=== PATIENT | male | born 1990 | race Caucasian/White ===

== ENCOUNTER 2018-10-23 14:41 | Observation (INO) | payer SELFPAY ==
[~2018-10-23 14:41] MED LIST: ROCURONIUM BROMIDE INJ 50 MG/5 ML VIAL IV ONE; SUCCINYLCHOLINE CHLORIDE INJ 200 MG/10 ML VIAL ONE
[2018-10-23] MEDS ORDERED: ONDANSETRON HCL INJ/PF 4 MG/2 ML SDV IV ONE (15:27)
[2018-10-23] MEDS ORDERED: NORMAL SALINE 1000 ML 1,000 ML IV ONE (15:27)
--- NOTE | 2018-10-23 15:29 | ER Document Report ---
ED Medical Screen (RME) - General Chief Complaint: Abdominal Pain Stated Complaint: NAUSEA Time Seen by Provider: 10/23/18 15:26 Mode of Arrival: Ambulatory Information source: Patient Notes: Patient presents complaining of abdominal pain that started yesterday with nausea vomiting and diarrhea. Patient states that he is vomited about 15 times today. Patient does report decreased appetite. Patient reports subjective fever. Patient states pain starts the epigastric area that has moved to the right side of his abdomen. Patient states the pain does occasionally radiate to the testicles. Patient denies any flank pain. I have greeted and performed a rapid initial assessment of this patient. A comprehensive ED assessment and evaluation of the patient, analysis of test results and completion of the medical decision making process will be conducted by additional ED providers. TRAVEL OUTSIDE OF THE [place] IN LAST 30 DAYS: No - Related Data Allergies/Adverse Reactions: No Known Allergies Allergy (Unverified 10/23/18 14:42) Past Medical History - Social History Chew tobacco use (# tins/day): No Frequency of alcohol use: None Drug Abuse: None Renal/ Medical History: Denies: Hx Peritoneal Dialysis Physical Exam - Vital signs Vitals: Temp Pulse Resp BP Pulse Ox 98.7 F 118 H 22 H 155/91 H 97 10/23/18 14:49 10/23/18 14:49 10/23/18 14:49 10/23/18 14:49 10/23/18 14:49 - Abdominal Tenderness: Tender - Right lateral abdominal tenderness Course - Vital Signs Vital signs: Temp Pulse Resp BP Pulse Ox 98.7 F 118 H 22 H 155/91 H 97 10/23/18 14:49 10/23/18 14:49 10/23/18 14:49 10/23/18 14:49 10/23/18 14:49
[2018-10-23 16:40] LABS: ABSOLUTE BASOPHILS # (AUTO) 0.1 10^3/uL (0.0-0.2); ABSOLUTE EOSINOPHILS # (AUTO) 0.1 10^3/uL (0.0-0.6); ABSOLUTE LYMPHOCYTES (AUTO) 1.6 10^3/uL (0.5-4.7); ABSOLUTE MONOCYTES (AUTO) 1.2 10^3/uL (0.1-1.4); ABSOLUTE NEUT (AUTO) 16.4 10^3/uL (1.7-8.2); BASOPHILS % (AUTO) 0.6 % (0-2); EOSINOPHILS % (AUTO) 0.5 % (0-6); HEMATOCRIT 52.2 % (37.9-51.0); HEMOGLOBIN 17.1 g/dL (13.5-17.0); LYMPHOCYTES % (AUTO) 8.1 % (13-45); MEAN CORPUSCULAR HEMOGLOBIN 25.4 pg (27.0-33.4); MEAN CORPUSCULAR HGB CONC 32.7 g/dL (32.0-36.0); MEAN CORPUSCULAR VOLUME 78 fl (80-97); MONOCYTES % (AUTO) 6.3 % (3-13); PLATELET COUNT 569 10^3/uL (150-450); RED BLOOD COUNT 6.72 10^6/uL (4.35-5.55); RED CELL DISTRIBUTION WIDTH 19.8 % (11.5-14.0); SEGMENTED NEUTROPHILS % (AUTO) 84.5 % (42-78); TOTAL CELLS COUNTED % (AUTO) 100 %; WHITE BLOOD COUNT 19.5 10^3/uL (4.0-10.5)
[2018-10-23 16:50] LABS: APPEARANCE,URINE CLOUDY; BILIRUBIN,URINE SMALL (NEGATIVE); GLUCOSE, URINE NEGATIVE (NEGATIVE); KETONES,URINE 20 mg/dL (NEGATIVE); LEUKOCYTE ESTERASE,URINE NEGATIVE (NEGATIVE); NITRITE,URINE NEGATIVE (NEGATIVE); PROTEIN,URINE 100 mg/dL (NEGATIVE); URINE SPECIFIC GRAVITY 1.031
[2018-10-23 16:51] LABS: COLOR,URINE YELLOW
[2018-10-23 16:58] LABS: ALANINE AMINOTRANSFERASE 67 U/L (21-72); ALBUMIN 4.4 g/dL (3.5-5.0); ALKALINE PHOSPHATASE 163 U/L (38-126); ANION GAP 15 (5-19); ASPARTATE AMINO TRANSFERASE 43 U/L (17-59); BILIRUBIN,DIRECT 0.5 mg/dL (0.0-0.4); BILIRUBIN,TOTAL 0.9 mg/dL (0.2-1.3); BLOOD UREA NITROGEN 8 mg/dL (7-20); CARBON DIOXIDE 27 mmol/L (22-30); CHLORIDE 100 mmol/L (98-107); GLUCOSE 93 mg/dL (75-110); LIPASE 372.4 U/L (23-300); SODIUM 141.6 mmol/L (137-145); TOTAL PROTEIN 7.5 g/dL (6.3-8.2)
[2018-10-23] MEDS ORDERED: RINGERS SOLUTION,LACTATED 1,000 ML IV ONE ×2 (18:31→20:08)
--- NOTE | 2018-10-23 19:01 | ER Document Report ---
ED General - General Chief Complaint: Abdominal Pain Stated Complaint: NAUSEA Time Seen by Provider: 10/23/18 15:26 Mode of Arrival: Ambulatory Notes: Patient is a 28-year-old male without chronic medical problems, does use testosterone, no history of abdominal surgeries who presents with 36 hours of nausea, vomiting, diarrhea and right-sided abdominal pain. States the pain started first followed by vomiting and diarrhea. States he has had difficulty tolerating even oral fluids as this generally triggered him to vomit or have an episode of diarrhea. No hematemesis, melena or hematochezia. He denies any history of similar symptoms in the past. No known sick contacts. Has had subjective fever at home but has not recorded a temperature. He has not seen his general physician regarding today's concerns. The pain to his abdomen is described as a throbbing, aching, stabbing discomfort mostly localized to his right lower quadrant. Nothing seems to improve or worsen this discomfort. TRAVEL OUTSIDE OF THE [place] IN LAST 30 DAYS: No - Related Data Allergies/Adverse Reactions: No Known Allergies Allergy (Unverified 10/23/18 14:42) Past Medical History - General Information source: Patient - Social History Smoking Status: Never Smoker Chew tobacco use (# tins/day): No Frequency of alcohol use: None Drug Abuse: None Lives with: Spouse/Significant other Family History: Reviewed & Not Pertinent Patient has suicidal ideation: No Patient has homicidal ideation: No Renal/ Medical History: Denies: Hx Peritoneal Dialysis Review of Systems - Review of Systems Notes: Constitutional: Positive for subjective fever HENT: Negative for sore throat. Eyes: Negative for visual changes. Cardiovascular: Negative for chest pain. Respiratory: Negative for shortness of breath. Gastrointestinal: Positive for abdominal pain, vomiting and diarrhea Genitourinary: Negative for dysuria. Musculoskeletal: Negative for back pain. Skin: Negative for rash. Neurological: Negative for headaches, weakness or numbness. 10 point ROS negative except as marked above and in HPI. Physical Exam - Vital signs Vitals: Temp Pulse Resp BP Pulse Ox 98.7 F 118 H 22 H 155/91 H 97 10/23/18 14:49 10/23/18 14:49 10/23/18 14:49 10/23/18 14:49 10/23/18 14:49 Interpretation: Hypertensive, Tachycardic - Patient states his resting heart rate is generally 100 Notes: PHYSICAL EXAMINATION: GENERAL: Well-appearing, well-nourished and in no acute distress. HEAD: Atraumatic, normocephalic. EYES: Pupils equal round and reactive to light, extraocular movements intact, sclera anicteric, conjunctiva are normal. ENT: nares patent, oropharynx clear without exudates. Moderately dry mucous membranes. NECK: Normal range of motion, supple without lymphadenopathy LUNGS: Breath sounds clear to auscultation bilaterally and equal. No wheezes rales or rhonchi. HEART: regular tachycardia without murmurs ABDOMEN: Soft, mild diffuse tenderness most localized to the right lower quadrant and right upper quadrant without rebound or guarding, normoactive bowel sounds. No masses appreciated. EXTREMITIES: Normal range of motion, no pitting or edema. No cyanosis. NEUROLOGICAL: No focal neurological deficits. Moves all extremities spontaneously and on command. PSYCH: Normal mood, normal affect. SKIN: Warm, Dry, normal turgor, diffuse acne lesions Course - Re-evaluation Re-evalutation: 10/23/18 19:00 Patient presents with right-sided abdominal pain with associated nausea vomiting diarrhea. Presentation appears to be likely an infectious gastroenteritis but patient's localization of pain on abdominal exam is very much so localized towards the right lower quadrant and certainly worrisome for a very atypical presentation of appendicitis. Most concerned that the patient states that his pain started prior to his vomiting or diarrhea. CT imaging will be obtained to clarify that this is not an atypical presentation of appendicitis. His testicular exam is unremarkable as he did complain of some testicular pain in triage. Positive cremasteric reflex, no testicular or epididymal tenderness. Normal testicular lie. Patient's labs are notable for mild kidney injury, po lycythemia, likely related to his testosterone abuse which we have discussed at length. Patient is also noted to be tachycardic although is actually hypertensive again this could be contributing to his testosterone abuse as well as dehydration. The patient does admit that his blood pressure is generally high and that he often has a heart rate of 100-110. I have advised at length that he discontinue testosterone use immediately and we have reviewed the severe dangers of abuse of this hormonal therapy for bodybuilding purposes. 10/23/18 20:18 CT scan does demonstrate acute appendicitis. I have discussed with the surgeon on-call Dr. Lester who is accepted the patient. Patient has been notified of findings. He remains n.p.o. Has been started on Zosyn - Vital Signs Vital signs: Temp Pulse Resp BP Pulse Ox 98.7 F 118 H 22 H 155/91 H 97 10/23/18 14:49 10/23/18 14:49 10/23/18 14:49 10/23/18 14:49 10/23/18 14:49 - Laboratory Result Diagrams: 10/23/18 16:24 10/23/18 16:24 Laboratory results interpreted by me: 10/23/18 10/23/18 10/23/18 15:40 16:24 16:24 WBC 19.5 H RBC 6.72 H Hgb 17.1 H Hct 52.2 H MCV 78 L MCH 25.4 L RDW 19.8 H Plt Count 569 H Seg Neutrophils % 84.5 H Lymphocytes % 8.1 L Absolute Neutrophils 16.4 H Creatinine 1.30 H Direct Bilirubin 0.5 H Alkaline Phosphatase 163 H Lipase 372.4 H Urine Protein 100 H Urine Ketones 20 H Urine Bilirubin SMALL H Urine Urobilinogen 2.0 H - Diagnostic Test Radiology reviewed: Reports reviewed Discharge - Discharge Clinical Impression: Nausea vomiting and diarrhea, Polycythemia Acute appendicitis Qualifiers: Acute appendicitis type: with localized peritonitis Appendicitis gangrene presence: without gangrene Appendicitis perforation presence: without perforation Appendicitis abscess presence: without abscess Qualified Code(s): K35.30 - Acute appendicitis with localized peritonitis, without perforation or gangrene Condition: Fair Disposition: ADMITTED OBSERVATION Admitting Provider: Surgicalist Unit Admitted: Surgical Floor
--- NOTE | 2018-10-23 19:47 | RADIOLOGY REPORT (SQ) ---
EXAM DESCRIPTION: CT ABD/PELVIS WITH IV ONLY COMPLETED DATE/TIME: 10/23/2018 7:16 pm REASON FOR STUDY: rlq ab pain, vomiting COMPARISON: None. TECHNIQUE: CT scan of the abdomen and pelvis performed using helical scanning technique with dynamic intravenous contrast injection. No oral contrast. Images reviewed with lung, soft tissue, and bone w indows. Reconstructed coronal and sagittal MPR images reviewed. Delayed images for evaluation of the urinary system also acquired. All images stored on PACS. All CT scanners at this facility use dose modulation, iterative reconstruction, and/or weight based d osing when appropriate to reduce radiation dose to as low as reasonably achievable (ALARA). [facility]: Dose Right [facility]: CareDose [facility]: Dose Right [facility]: Teradose 4D [facility]: CoSchedule CONTRAST TYPE AND DOSE: contrast/concentration: Isovue 350.00 mg/ml; Total Contrast Delivered: 90.0 ml; Total Saline Delivered: 45.0 ml RENAL FUNCTION: GFR > 60. RADIATION DOSE: CT Rad equipment meets quality standard of care and radiation dose reduction techniq ues were employed. CTDIvol: 6.5 - 9.2 mGy. DLP: 811 mGy-cm.. LIMITATIONS: None. FINDINGS: LOWER CHEST: No significant findings. LIVER: Normal size. No enhancing masses. No dilated ducts. SPLEEN: Normal size. No focal lesions. PANCREAS: No masses identified. No significant calcifications. No adjacent inflammation or peripancre atic fluid collections. Pancreatic duct not dilated. GALLBLADDER: No calcified stones. No inflammatory changes to suggest cholecystitis. ADRENAL GLANDS: No significant masses. RIGHT KIDNEY AND URETER: No cysts identified. No solid masses identified. No calcified stones. No hyd ronephrosis or hydroureter. LEFT KIDNEY AND URETER: No cysts identified. No solid masses identified. No calcified stones. No hydr onephrosis or hydroureter. AORTA AND VESSELS: No aneurysm. No dissection. Renal arteries, SMA, celiac without significant stenos is. RETROPERITONEUM: No bulky retroperitoneal adenopathy. BOWEL AND PERITONEAL CAVITY: No obstruction or inflammatory changes. No free fluid. APPENDIX: Inflamed dilated appendix with adjacent inflammatory changes. PELVIS: No mass. No free fluid. Unremarkable bladder. ABDOMINAL WALL: No masses. No hernias. BONES: No acute findings. OTHER: No other significant finding. IMPRESSION: Acute appendicitis. TECHNICAL DOCUMENTATION: JOB ID: [id number] [id number] Quality ID # [id number]: Final reports with documentation of one or more dose reduction techniques (e.g., Au tomated exposure control, adjustment of the mA and/or kV according to patient size, use of iterative reconstruction technique) 2010 [employer]- All Rights Reserved Reading location - IP/workstation name: [email or web address]
[2018-10-23] MEDS ORDERED: MORPHINE SULFATE 10 MG/ML INJ IV PRN ×3 (19:50→23:42)
[2018-10-23] MEDS ORDERED: PIPERACILLIN/TAZOBACTAM 3.375 GM VIAL IV ONE (19:50)
[2018-10-23] MEDS ORDERED: KETOROLAC TROMETHAMINE INJ/PF 30 MG/1 ML SDV IV ONE (19:50)
[2018-10-23] MEDS ORDERED: RINGERS SOLUTION,LACTATED 1,000 ML IV PRN (19:59)
--- NOTE | 2018-10-23 20:24 | PDOC H&P ---
History of Present Illness Admission Date/PCP: 10/23/18 Patient complains of: abdominal pains History of Present Illness: BROOK CHAIREZ is a 28 year old male who started to have upper abdominal pains 36 hrs ago. This was associated with nausea/vomiting/diarrhea and fever/chills. Pains localized to RLQ last night. Went to ED and CT scan of abd/pelvis showed acute appendicitis. He participates in power lifting and takes a testosterone med for this. He has been tapering it for past 2 weeks. Social History Lives with: Spouse/Significant other Smoking Status: Never Smoker Family History Family History: Reviewed & Not Pertinent Parental Family History Reviewed: Yes Children Family History Reviewed: No Sibling(s) Family History Reviewed.: No Medication/Allergy Home Medications: Trazodone HCl [Desyrel 50 mg Tablet] 150 mg PO QHS 10/23/18 Allergies/Adverse Reactions: No Known Allergies Allergy (Unverified 10/23/18 14:42) Review of Systems Constitutional: PRESENT: as per HPI Physical Exam Vital Signs: Temp Pulse Resp BP Pulse Ox 98.7 F 118 H 22 H 155/91 H 97 10/23/18 14:49 10/23/18 14:49 10/23/18 14:49 10/23/18 14:49 10/23/18 14:49 Intake & Output 10/22/18 10/23/18 10/24/18 06:59 06:59 06:59 Intake Total 1000 Balance 1000 Weight 79.1 kg General appearance: PRESENT: severe distress Head exam: PRESENT: atraumatic Eye exam: PRESENT: conjunctiva pink Mouth exam: PRESENT: dry mucosa Neck exam: PRESENT: full ROM Respiratory exam: PRESENT: clear to auscultation sybil Cardiovascular exam: PRESENT: RRR Pulses: PRESENT: normal radial pulses Vascular exam: PRESENT: normal capillary refill GI/Abdominal exam: PRESENT: soft, tenderness - RLQ with rebound Rectal exam: PRESENT: deferred Extremities exam: PRESENT: full ROM Musculoskeletal exam: PRESENT: ambulatory Neurological exam: PRESENT: alert, oriented to person, oriented to place, oriented to time, oriented to situation Psychiatric exam: PRESENT: appropriate affect Skin exam: PRESENT: normal color, warm Results Laboratory Results: 10/23/18 16:24 10/23/18 16:24 10/23/18 10/23/18 10/23/18 15:40 16:24 16:24 WBC 19.5 H RBC 6.72 H Hgb 17.1 H Hct 52.2 H MCV 78 L MCH 25.4 L MCHC 32.7 RDW 19.8 H Plt Count 569 H Seg Neutrophils % 84.5 H Lymphocytes % 8.1 L Monocytes % 6.3 Eosinophils % 0.5 Basophils % 0.6 Absolute Neutrophils 16.4 H Absolute Lymphocytes 1.6 Absolute Monocytes 1.2 Absolute Eosinophils 0.1 Absolute Basophils 0.1 Sodium 141.6 Potassium 5.0 Chloride 100 Carbon Dioxide 27 Anion Gap 15 BUN 8 Creatinine 1.30 H Est GFR ( Amer) > 60 Est GFR (Non-Af Amer) > 60 Glucose 93 Calcium 10.0 Total Bilirubin 0.9 AST 43 ALT 67 Alkaline Phosphatase 163 H Total Protein 7.5 Albumin 4.4 Lipase 372.4 H Urine Color YELLOW Urine Appearance CLOUDY Urine pH 7.0 Ur Specific [place] 1.031 Urine Protein 100 H Urine Glucose (UA) NEGATIVE Urine Ketones 20 H Urine Blood NEGATIVE Urine Nitrite NEGATIVE Ur Leukocyte Esterase NEGATIVE Urine WBC (Auto) 2 Urine RBC (Auto) 2 Impressions: Abdomen/Pelvis CT 10/23/18 18:55 IMPRESSION: Acute appendicitis. Assessment & Plan - Diagnosis (1) acute appendicitis Is this a current diagnosis for this admission?: Yes - Time Time Spent: 30 to 50 Minutes - Inpatient Certification Medical Necessity: Need For IV Fluids, Need for IV Antibiotics, Need for Surgery - Plan Summary Plan Summary: Start IV antibiotics Hydrate For lap appendectomy
[2018-10-23] MEDS ORDERED: BUPIVACAINE HCL 0.25 % INJ/PF (2.5 MG/1 ML) 30 ML VIAL ONE (21:04)
[2018-10-23] MEDS ORDERED: PROPOFOL INJ 200 MG/20 ML VIAL IV ONE (21:21)
[2018-10-23] MEDS ORDERED: ONDANSETRON HCL INJ/PF 4 MG/2 ML SDV ONE (21:21)
[2018-10-23] MEDS ORDERED: MIDAZOLAM 2 MG/2 ML INJ ONE (21:21)
[2018-10-23] MEDS ORDERED: FENTANYL CITRATE INJ/PF 100 MCG/2 ML AMPUL ONE ×2 (21:21→22:53)
[2018-10-23] MEDS ORDERED: DEXAMETHASONE SOD PHOSPHATE INJ 4 MG/1 ML VIAL ONE (21:21)
[2018-10-23] MEDS ORDERED: DIPHENHYDRAMINE HCL 50 MG/ML VIAL IV PRN (22:09)
[2018-10-23] MEDS ORDERED: PROMETHAZINE HCL INJ 25 MG/1 ML VIAL IV PRN ×2 (22:09)
[2018-10-23] MEDS ORDERED: ONDANSETRON HCL INJ/PF 4 MG/2 ML SDV IV PRN ×2 (22:09→23:43)
[2018-10-23] MEDS ORDERED: MEPERIDINE HCL/PF INJ 25 MG/1 ML DISP.SYRIN IV PRN (22:09)
[2018-10-23] MEDS ORDERED: OXYCODONE-ACETAMINOPHEN 5-325 MG TABLET PO PRN ×3 (22:09→23:42)
[2018-10-23] MEDS ORDERED: FENTANYL CITRATE INJ/PF 100 MCG/2 ML AMPUL IV PRN ×3 (22:09)
[2018-10-23] MEDS ORDERED: DEXTROSE 5%-LACTATED RINGERS 1,000 ML IV PRN (23:43)
[2018-10-24] MEDS ORDERED: PIPERACILLIN/TAZOBACTAM 3.375 GM VIAL IV ONE (04:31)
[2018-10-24] MEDS: PIPERACILLIN SODIUM/TAZOBACTAM 3.375 GM in NORMAL SALINE 100 ML IV SCH ×2 (04:52→08:52)
[2018-10-24] MEDS: KETOROLAC TROMETHAMINE INJ/PF 30 MG/1 ML SDV IV SCH ×2 (04:52→08:52)
[2018-10-24 05:45] LABS: HEMATOCRIT 44.8 % (37.9-51.0); MEAN CORPUSCULAR HEMOGLOBIN 25.4 pg (27.0-33.4); MEAN CORPUSCULAR HGB CONC 32.3 g/dL (32.0-36.0); MEAN CORPUSCULAR VOLUME 79 fl (80-97); PLATELET COUNT 389 10^3/uL (150-450); RED BLOOD COUNT 5.69 10^6/uL (4.35-5.55); RED CELL DISTRIBUTION WIDTH 19.4 % (11.5-14.0); WHITE BLOOD COUNT 17.9 10^3/uL (4.0-10.5)
[2018-10-24 06:05] LABS: HEMOGLOBIN 14.5 g/dL (13.5-17.0)
[2018-10-24 06:09] LABS: ABSOLUTE LYMPHOCYTES# (MANUAL) 1.3 10^3/uL (0.5-4.7); ABSOLUTE MONOCYTES # (MANUAL) 0.5 10^3/uL (0.1-1.4); BAND NEUTROPHILS % (MANUAL) 1 % (3-5); BASOPHILS % (MANUAL) 0 % (0-2); EOSINOPHILS % (MANUAL) 0 % (0-6); LYMPHOCYTES % (MANUAL) 6 % (13-45); MONOCYTES % (MANUAL) 3 % (3-13); SEGMENTED NEUTROPHILS % (MAN) 89 % (42-78); TOTAL CELLS COUNTED 100
[2018-10-24 06:10] LABS: ANISOCYTOSIS 2+; PLATELET COMMENT ADEQUATE; TOXIC GRANULATION SLIGHT
--- NOTE | 2018-10-24 07:59 | OPERATIVE REPORT E ---
Operative Report NAME: BROOK CHAIREZ : 1990 AGE: 28Y DATE OF SURGERY: 10/23/2018 ROOM: 431 PREOPERATIVE DIAGNOSIS: ACUTE APPENDICITIS. POSTOPERATIVE DIAGNOSIS: ACUTE APPENDICITIS. OPERATION: Laparoscopic appendectomy. SURGEON: HARRIET AGUILAR M.D. ANESTHESIA: General. INDICATION: This is a 28-year-old male complaining of abdominal pains for the past 36 hours. In the ED he had a CT scan of the abdomen which showed acute appendicitis. His white count is elevated and he has been complaining of nausea, vomiting, chills, and fever as well as diarrhea. PROCEDURE: After adequate general anesthesia, patient was placed in a supine position in the abdomen, prepped and draped in the usual sterile fashion. Appropriate timeout was then called. An infraumbilical incision was then made and the fascia divided and Vo trocar inserted through the fascia to the abdominal cavity. Two other trocars were placed, 5 mm suprapubic and a 12 mm in the left lower quadrant under direct vision. Patient did have some film of omental adhesion just below the peritoneum towards the left lateral area. Next, the appendix was then visualized and noted to be plastered to the cecum, going posteriorly. It was also plastered to the right lateral gutter. An attempt to do a blunt dissection of the appendix going posteriorly but quite difficult to complete. The appendix appears to be inflamed but the base appears to be normal close to he cecum. A window was then developed within the appendix and the cecum and this was then stapled with a 35 mm endo AL white load. Next, the appendix was then dissected and the appendical artery identified and subsequently clipped with hemoclips and then divided with the use of Harmonic delmis towards the appendix. Appendix was then dissected in a retrograde fashion with the use of [place] dissector and with use of the harmonic delmis. The appendix was then completely removed and placed in an Endobag and pulled out through the umbilical port. The stump was then irrigated and no evidence of active bleeding noted. Evidence of old blood, and this was then suctioned out. A piece of Surgicel was then placed over the stump and towards the posterior side where the appendix was dissected off the mesoappendix. A Link-Ley drain was then brought out through the suprapubic area and anchored to the skin with 2-0 Silk. It was placed on the right lateral gutter close to the appendical stump. The omentum was attempted to be put back towards the area of the appendical stump. The needle and sponge count were all correct and all of the trocars were then pulled out and CO2 allowed to come out of the trocar sites. The fascial defect at the infraumbilical area was then closed with a [id number] suture using 0-Vicryl and the 2 stay sutures were then tied together for better closure. Next, all of the skin incisions were closed with running subcuticular 4-0 Vicryl undyed. Steri-Strips placed over the operative sites. Needle, instrument, and sponge count were all correct. Estimated blood loss was no more than 10 mL. Patient was then brought to recovery room, extubated in satisfactory condition. DICTATING PHYSICIAN: HARRIET AGUILAR M.D. [id number] PHY#: [id number] ID: [id number] JOB#: [id number] ACCT: [id number] cc:HARRIET AGUILAR M.D. >
[2018-10-24 10:56] VITALS: BP 151/81
== END 2018-10-24 10:59 | disposition home or self-care (01) ==
LOC: ER 14:41 → EH 20:26 → 4S 10-24 00:08
PROVIDERS: ATTEND Surgery
PROC: 0DTJ4ZZ Resection of Appendix, Percutaneous Endoscopic Approach (ICD-10-PCS; principal; 2018-10-23 21:45)
DX: K35.890 Other acute appendicitis without perforation or gangrene (principal); Z88.8 Allergy status to other drugs, medicaments and biological substances
CPT/HCPCS: 99285; 96361; 96374; 96375; 36415 ×2; 83690; 85025 ×2; 80053; 81001; 88304 ×2; 74177; 00840; 44970; G0378; J2250; J3490; J1100; J3010; J1885 ×2; J2270; J0330; J2405; J7121; J7050; J7030; J7120; J2704; J2543 ×2; 840